=== PATIENT | female | born 1945 | race Caucasian/White ===

== ENCOUNTER 2017-10-18 08:55 | Day surgery (SDC) | payer BC ==
[~2017-10-18] VITALS: Ht 170.2 cm; Wt 70.1 kg
[~2017-10-18 08:55] MED LIST: DIPH50 PO; DOCU100 PO; FAMO20 PO; FAMO40 PO; FLUC150A PO; LORA1SY; MACUHEALTH; MOVE FREE JOIN1 EACH PO; OXYACE5T PO; PRED20 PO; PROM25 PO; RXOXYACE PO; SOLI5; SUPREP BOWEL P354 ML; Vitamin D2000 UNIT PO
== END 2017-10-18 10:54 | disposition home or self-care (01) ==
LOC: ORSCSDS 08:55
PROVIDERS: Internal Medicine Gastroenterology
PROC: 0DBL8ZX Excision of Transverse Colon, Via Natural or Artificial Opening Endoscopic, Diagnostic (ICD-10-PCS; principal; 2017-10-18 10:15)
PROC: 0DBH8ZX Excision of Cecum, Via Natural or Artificial Opening Endoscopic, Diagnostic (ICD-10-PCS; principal; 2017-10-18 10:15)
DX: Z12.11 Encounter for screening for malignant neoplasm of colon (principal); D12.0 Benign neoplasm of cecum; D12.3 Benign neoplasm of transverse colon; K57.30 Diverticulosis of large intestine without perforation or abscess without bleeding; K64.8 Other hemorrhoids
CPT/HCPCS: 88305; J7120

== ENCOUNTER 2019-01-10 10:40 | Day surgery (SDC) | payer BC ==
[~2019-01-10] VITALS: Ht 170.2 cm; Wt 73.0 kg
[~2019-01-10 10:40] MED LIST changes: +CALCIUM CIT 311 EACH PO; +CLARITIN10 MG PO; +PEPCID40 MG PO; +Vesicare10 MG PO
[2019-01-10] MEDS ORDERED: Toviaz4 MG PO (10:49)
--- NOTE | 2019-01-10 12:17 | NUR ---
01/10/19 1217 Shyann Goff PT UPDATED ON DELAY. RESTING COMFORTABLY IN ROOM WITH SPOUSE AND CALL LIGHT WITHIN REACH. DENIES NEEDS AT THIS TIME.
== END 2019-01-10 12:49 | disposition home or self-care (01) ==
LOC: ORSCSDS 10:40
PROVIDERS: Anesthesiology
PROC: 3E0R33Z Introduction of Anti-inflammatory into Spinal Canal, Percutaneous Approach (ICD-10-PCS; principal; 2019-01-10 12:00)
DX: M51.16 Intervertebral disc disorders with radiculopathy, lumbar region (principal); K21.9 Gastro-esophageal reflux disease without esophagitis; M54.5 Low back pain; Z79.899 Other long term (current) drug therapy
CPT/HCPCS: J1040

== ENCOUNTER 2019-08-23 11:58 | Day surgery (SDC) | payer BC ==
[~2019-08-23] VITALS: Ht 170.2 cm; Wt 71.4 kg
[~2019-08-23 11:58] MED LIST changes: +Percocet 5-3251 EACH PO; +Toviaz4 MG PO
[2019-08-23] MEDS ORDERED: ONDANSETRON TAB 4MG PO (13:07)
--- NOTE | 2019-08-23 13:38 | NUR ---
History, Chart, Medications and Allergies reviewed before start of procedure. Lungs clear T/O to Auscultation. Patient confirms NPO status and agrees with scheduled surgery. Pre-Op teaching done. Pt verbalizes understanding. Patient reports completing Chlorhexadine shower X2 prior to admission to hospital.
--- NOTE | 2019-08-23 13:53 | NUR ---
ASSUMED CARE OF PT
--- NOTE | 2019-08-23 18:25 | NUR ---
SHIFT SUMMARY PT ARRIVED TO ROOM 217 FROM PACU S/P RIGHT SHOULDER HUMARUS FX SURGERY. PT C/O 10/10 PAIN TO SHOULDER. PRN MEDS GIVEN, SEE EMAR FOR DOCUMENTATION. PILLOW SUPPORT PROVIDED TO ARM, WHICH HELPED WITH PAIN RELIEF. AQUACELL DRESSING IS C/D/I, BRUISING NOTED TO RIGHT ARM. CSM INTACT.
--- NOTE | 2019-08-24 06:37 | NUR ---
SHIFT SUMMARY LYING IN SEMI FOWLERS WITH EYES OPEN WHILE LOOKING OUT THE WINDOW. AAO X3, HSIEH, FOLLOWS ALL COMMANDS. HAS BEEN COMPLIANT AND COOPERATIVE WITH CARE. WAS ABLE TO GET OOB TO BSC X2, ONCE FOR URINE AND ONCE FOR BM AND URINE, TOLERATED WELL. DENIES FURTHER NEEDS OR WANTS AT THIS TIME. SAFETY MEASURES IN PLACE. WILL CONTINUE TO MONITOR AND GIVE HAND OFF TO ONCOMING SHIFT USING SBAR DURING BEDSIDE REPORT.
--- NOTE | 2019-08-24 10:12 | NUR ---
Pt was fitted with the immoblizer and her IV dc'd. Discharge instructions were reviewed with the pt. She said her is going to pick her up and take her home.
== END 2019-08-24 09:30 | disposition home or self-care (01) ==
LOC: ORSCMMR 11:58 → ORD 13:30 → ORSCMMR 13:30 → SURS 17:42 → ORSCMMR 08-24 09:30
PROVIDERS: Orthopaedic Surgery
PROC: 0PSC04Z Reposition Right Humeral Head with Internal Fixation Device, Open Approach (ICD-10-PCS; principal; 2019-08-23 13:30)
DX: S42.251A Displaced fracture of greater tuberosity of right humerus, initial encounter for closed fracture (principal); S42.291A Other displaced fracture of upper end of right humerus, initial encounter for closed fracture; W18.30XA Fall on same level, unspecified, initial encounter; K21.9 Gastro-esophageal reflux disease without esophagitis; Z79.899 Other long term (current) drug therapy
CPT/HCPCS: 72170; 73030; C1713; J1170; J1885; J2704; J3010; J3370; J7120

== ENCOUNTER 2020-08-19 06:44 | Day surgery (SDC) | payer BC ==
[~2020-08-19] VITALS: Ht 167.6 cm; Wt 69.2 kg
[~2020-08-19 06:44] MED LIST changes: +NIAC500 PO; +ONDANSETRON TAB 4MG PO; +PYRI100 PO
--- NOTE | 2020-08-19 20:43 | NUR ---
SHIFT SUMMARY PT POST OP LEFT TKA WITH DR PINTO. ALERT AND ORIENTED THROUGHOUT SHIFT. PAINFUL IN EARLY AFTERNOON. GIVEN 1 MG DILAUDID WHICH MADE PATIENT DROWSY. EXPERIENCED SOME NAUSEA LATE AFTERNOON AND EVENING. WALKED IN ROOM WITH PHYSICAL THERAPY. TOLERATING A FEW BITES OF REGULAR DIET. AQUACEL TO LEFT KNEE WITH ELIJAH WRAP. VOIDING. REPORT GIVEN TO [place] PAT[place]OL OFFICER RN.
--- NOTE | 2020-08-20 03:49 | NUR ---
SHIFT SUMMARY A/OX4, AMBULATING IN ROOM WITH MINIMAL ASSISTANCE FWW AND GB. REPORTS PAIN 1-2 AT THIS TIME. TOLERATING DIET AND VOIDING T/O SHIFT. VSS, NO ACUTE CHANGES AT THIS TIME. BED IN LOWEST POSITION WITH CALL LIGHT IN REACH. WILL CONTINUE TO MONITOR AND REPORT TO ONCOMING RN.
[2020-08-20 04:39] LABS: BASOPHILS ABSOLUTE AUTO 0.01 K/mm3 (0.00-0.23); BASOPHILS PERCENT AUTO 0 % (0-2); EOSINOPHILS ABSOLUTE AUTO 0.02 K/mm3 (0.00-0.68); EOSINOPHILS PERCENT AUTO 0 % (0-6); Hematocrit 34.6 % (33.0-51.0); Hemoglobin 11.3 g/dL (11.5-16.0); IMMATURE GRAN ABSOLUTE AUTO 0.02 K/mm3 (0.00-0.10); IMMATURE GRAN PERCENT AUTO 0 % (0-1); LYMPHOCYTES ABSOLUTE AUTO 0.71 K/mm3 (0.84-5.20); LYMPHOCYTES PERCENT AUTO 10 % (21-46); MONOCYTES PERCENT AUTO 7 % (4-13); Mean Corpuscular HGB 30.8 pg (26.0-34.0); Mean Corpuscular HGB Conc 32.7 g/dL (31.5-36.5); Mean Corpuscular Volume 94 fL (80-100); Mean Platelet Volume 10.7 fL (9.1-12.4); NEUTROPHILS ABSOLUTE AUTO 5.71 K/mm3 (1.96-9.15); NEUTROPHILS PERCENT AUTO 82 % (41-73); Platelet Count 184 K/mm3 (150-400); RDW Coefficient Variation 14.2 % (11.7-14.2); RDW Standard Deviation 49.4 fL (35.1-46.3); Red Blood Cell Count 3.67 M/mm3 (3.80-5.20); White Blood Cell Count 6.97 K/mm3 (4.00-11.30)
[2020-08-20 05:03] LABS: Anion Gap 5 mmol/L (6-16); Blood Urea Nitrogen 17 mg/dL (8-24); Bun/Creatinine Ratio 21.2 (12.0-20.0); CO2, Blood 27 mmol/L (21-32); Calcium, Blood 8.6 mg/dL (8.5-10.1); Chloride, Blood 104 mmol/L (98-108); Glomerular Filtration Rate >60 (60-); Glucose, Blood 108 mg/dL (70-99); Potassium, Blood 3.8 mmol/L (3.5-5.5); Sodium, Blood 136 mmol/L (136-145)
--- NOTE | 2020-08-20 07:15 | NUR ---
RECVD REPORT FROM PREVIOUS SHIFT PATITO LEBRON. PT IN BATHROOM, VOIDED, WOULD LIKE TO GO FOR A WALK, A/O X 4, PLEASANT/COOPERATIVE, DENIES FEELING LIGHTHEADED/DIZZY. AMBULATED IN HALLWAY AND IS SITTING IN CHAIR WITH CALL LIGHT, CRYO, TEDS/PAS
[2020-08-20] MEDS ORDERED: Percocet 5-3251 EACH PO (09:08)
[2020-08-20] MEDS ORDERED: ASPI81CH PO (09:09)
--- NOTE | 2020-08-20 11:15 | NUR ---
PROVIDED PT WITH DISCHARGE TEACHING AND PRINTED MATERIALS. PT STATES UNDERSTANDING. REMOVED PERIPHERAL IV WNL. PT'S BELONGINGS TRANSPORTED WITH PT TO AWAITING VEHICLE VIA WHEELCHAIR. PT DRIVING SAID VEHICLE.
== END 2020-08-20 11:55 | disposition home or self-care (01) ==
LOC: ORSCMMR 06:44 → ORD 08:15 → SURS 11:40 → ORSCMMR 08-20 11:55 → SURS 08-20 11:55
PROVIDERS: Orthopaedic Surgery
PROC: 0SRD0JA Replacement of Left Knee Joint with Synthetic Substitute, Uncemented, Open Approach (ICD-10-PCS; principal; 2020-08-19 08:15)
PROC: 8E0YXBZ Computer Assisted Procedure of Lower Extremity (ICD-10-PCS; principal; 2020-08-19 08:15)
DX: M17.12 Unilateral primary osteoarthritis, left knee (principal); K21.9 Gastro-esophageal reflux disease without esophagitis; Z79.899 Other long term (current) drug therapy
CPT/HCPCS: 36415; 73560-LT; 80048; 85025; 97110; 97116; 97162; A9270; C1776; J0171; J0690; J0735; J1100; J1170; J1885; J2250; J2370; J2405; J2704; J2795; J3010; J7120

== ENCOUNTER 2021-09-22 07:39 | Day surgery (SDC) | payer BC ==
[~2021-09-22 07:39] MED LIST changes: +ASPI81CH PO; +CELE200 PO; +PANT40 PO
--- NOTE | 2021-09-22 09:34 | NUR ---
09/22/21 0934 SOLA NAVAS SLIGHT REDNESS NOTED OVER IV SITE. ALMOST APPEARS LIKE A SCRATCH OVER THE AREA. PT DENIES DISCOMFORT OR PAIN.
== END 2021-09-22 09:47 | disposition home or self-care (01) ==
LOC: ORSCSDS 07:39
PROVIDERS: Ophthalmology
PROC: 08RJ3JZ Replacement of Right Lens with Synthetic Substitute, Percutaneous Approach (ICD-10-PCS; principal; 2021-09-22 09:00)
DX: H25.11 Age-related nuclear cataract, right eye (principal); H52.201 Unspecified astigmatism, right eye; K21.9 Gastro-esophageal reflux disease without esophagitis; Z79.899 Other long term (current) drug therapy
CPT/HCPCS: J2250; J3010; J3301; J7040; V2632

== ENCOUNTER 2021-10-15 07:43 | Day surgery (SDC) | payer BC ==
[~2021-10-15] VITALS: Ht 167.6 cm; Wt 70.0 kg
--- NOTE | 2021-10-15 08:13 | NUR ---
10/15/21 0813 Franchesca Madison @ 0809, RISA @ 0802
== END 2021-10-15 09:49 | disposition home or self-care (01) ==
LOC: ORSCSDS 07:43
PROVIDERS: Ophthalmology
PROC: 08RK3JZ Replacement of Left Lens with Synthetic Substitute, Percutaneous Approach (ICD-10-PCS; principal; 2021-10-15 09:00)
DX: H25.12 Age-related nuclear cataract, left eye (principal); Z96.1 Presence of intraocular lens; H52.202 Unspecified astigmatism, left eye; K21.9 Gastro-esophageal reflux disease without esophagitis; Z79.899 Other long term (current) drug therapy
CPT/HCPCS: J2001; J2250; J3010; J3301; J7040; V2632

== ENCOUNTER 2021-11-17 10:23 | Day surgery (SDC) | payer BC ==
[~2021-11-17] VITALS: Ht 167.6 cm; Wt 67.8 kg
[~2021-11-17 10:23] MED LIST changes: +B-12500 MC2 PO
--- NOTE | 2021-11-17 10:52 | NUR ---
History, Chart, Medications and Allergies reviewed before start of procedure. Patient confirms NPO status and agrees with scheduled surgery. Ambulatory in Day Surgery. Patient states colon prep results clear. Pre-Op teaching done. Pt verbalizes understanding. Lungs clear T/O to Auscultation. Patient States Post-Procedure ride home has been arranged.
--- NOTE | 2021-11-17 11:18 | NUR ---
11/17/21 1118 Benji Muñoz HISTORY, CHART, MEDICATIONS AND ALLERGIES REVIEWED BEFORE START OF PROCEDURE. PATIENT CONFIRMS NPO STATUS AND AGREES WITH SCHEDULED PROCEDURE. 3-LEAD EKG REVIEWED WITH PHYSICIAN PRIOR TO START OF PROCEDURE. MONITOR INTACT WITH CONTINUOUS PULSE OXIMETRY,CAPNOGRAPHY, 3-LEAD EKG, INTERMITTENT BP. SUPPLEMENTAL O2 TO BE TITRATED THROUGHOUT PROCEDURE TO MAINTAIN O2 SATURATION ABOVE 90%. PATIENT DETERMINED TO BE ASA APPROPRIATE FOR PROPOFOL SEDATION PRIOR TO START OF PROCEDURE BY DR. LIPSCOMB.
--- NOTE | 2021-11-17 12:48 | NUR ---
Discharge instructions reviewed with patient. Patient verbalizes understanding. Copy given to patient to take home.
--- NOTE | 2021-11-17 12:56 | NUR ---
Discharged via wheelchair to private car for ride home.
== END 2021-11-17 12:58 | disposition home or self-care (01) ==
LOC: ORSCMMR 10:23 → ORD 11:30 → ORSCSDS 11:30 → ORSCMMR 12:58
PROVIDERS: Internal Medicine Gastroenterology
PROC: 0DJ08ZZ Inspection of Upper Intestinal Tract, Via Natural or Artificial Opening Endoscopic (ICD-10-PCS; principal; 2021-11-17 11:30)
PROC: 0DBH8ZX Excision of Cecum, Via Natural or Artificial Opening Endoscopic, Diagnostic (ICD-10-PCS; principal; 2021-11-17 11:30)
PROC: 0DBL8ZX Excision of Transverse Colon, Via Natural or Artificial Opening Endoscopic, Diagnostic (ICD-10-PCS; principal; 2021-11-17 11:30)
DX: K21.9 Gastro-esophageal reflux disease without esophagitis (principal); Z12.11 Encounter for screening for malignant neoplasm of colon; Z86.010 Personal history of colon polyps; D12.0 Benign neoplasm of cecum; D12.3 Benign neoplasm of transverse colon; K44.9 Diaphragmatic hernia without obstruction or gangrene; K57.30 Diverticulosis of large intestine without perforation or abscess without bleeding; K64.4 Residual hemorrhoidal skin tags; E03.9 Hypothyroidism, unspecified; Z79.899 Other long term (current) drug therapy
CPT/HCPCS: 88305; J2704; J7120

== ENCOUNTER → 2023-10-01 | Outpatient (CLI) | payer BC ==
[2023-10-01 12:23] LABS: BASOPHILS PERCENT AUTO 0 % (0-2); EOSINOPHILS ABSOLUTE AUTO 0.15 K/mm3 (0.00-0.68); EOSINOPHILS PERCENT AUTO 3 % (0-6); Hematocrit 41.6 % (33.0-51.0); Hemoglobin 13.6 g/dL (11.5-16.0); IMMATURE GRAN ABSOLUTE AUTO 0.01 K/mm3 (0.00-0.10); IMMATURE GRAN PERCENT AUTO 0 % (0-1); LYMPHOCYTES ABSOLUTE AUTO 1.15 K/mm3 (0.84-5.20); LYMPHOCYTES PERCENT AUTO 24 % (21-46); MONOCYTES ABSOLUTE AUTO 0.39 K/mm3 (0.16-1.47); MONOCYTES PERCENT AUTO 8 % (4-13); Mean Corpuscular HGB 31.3 pg (26.0-34.0); Mean Corpuscular HGB Conc 32.7 g/dL (31.5-36.5); Mean Corpuscular Volume 96 fL (80-100); Mean Platelet Volume 10.3 fL (9.1-12.4); NEUTROPHILS ABSOLUTE AUTO 3.09 K/mm3 (1.96-9.15); NEUTROPHILS PERCENT AUTO 65 % (41-73); Platelet Count 201 K/mm3 (150-400); RDW Coefficient Variation 14.4 % (11.7-14.2); RDW Standard Deviation 51.2 fL (35.1-46.3); Red Blood Cell Count 4.34 M/mm3 (3.80-5.20); White Blood Cell Count 4.79 K/mm3 (4.00-11.30)
[2023-10-01 12:28] LABS: Bun/Creatinine Ratio 35.2 (12.0-20.0); Calcium, Blood 9.3 mg/dL (8.5-10.1); Creatinine, Blood 0.91 mg/dL (0.40-1.00); Potassium, Blood 4.1 mmol/L (3.5-5.5)
== END | disposition home or self-care (01) ==
LOC: LAB SHORT 12:18
PROVIDERS: Physician Assistant Surgical
DX: R31.9 Hematuria, unspecified (principal); R42 Dizziness and giddiness
CPT/HCPCS: 80048; 85025; 87086

== ENCOUNTER 2024-10-02 07:09 | Day surgery (SDC) | payer BC ==
[2024-10-02] VITALS (10 sets, daily range): BP systolic 106–122; BP diastolic 53–66
[~2024-10-02] VITALS: Ht 167.6 cm; Wt 66.7 kg
[~2024-10-02 07:09] MED LIST changes: +CeFAZolin Sodium 2,000 MG in NS 100 ML IV SCH; +Chlorhexidine Mouth Care 15 ML UDC MT SCH; +FISH OIL 1,0001 EA10 PO; +Ropivacaine 0.5% HCl/Pf 123.125 MG,EPINEPHrine HCL 0.25 MG,Ketorolac Tromethamine 15 MG... INFIL SCH; +TOCO1000 PO; +Tranexamic Acid 100 ML IV SCH
[2024-10-02] MEDS ORDERED: Midazolam HCl 1MG / ML 2ML Vial ONE (07:44)
[2024-10-02] MEDS ORDERED: Ondansetron HCl 2 MG / ML 2ML Vial IV ONE (07:45)
--- NOTE | 2024-10-02 08:19 | NUR ---
Ambulatory in Day Surgery WITH STEADY GAIT. ABLE TO STAND ON SCALE AND USE RESTROOM INDEPENDENTLY. SPOUSE AT BEDSIDE DURING PRE OP ADMISSION. WARM BLANKET PROVIDED. ALL BELONGINGS PLACED UNDER GURN. PT GAVE PURSE TO SPOUSE. History, Chart, Medications and Allergies reviewed before start of procedure. Pre-Op teaching done. Pt verbalizes understanding. PT AND SPOUSE DENY ANY FURTHER QUESTIONS AT THIS TIME. Patient States Post-Procedure ride home has been arranged WITH SPOUSE. PT REPORTS GETTING NAUSEATED WITH CODEINE AND HYDROCODONE AND REQUESTED NAUSEA MEDICATION WITH PRE OP OXYCONTIN. ANESTHESIA PROVIDER NOTIFIED AND ORDERED IV ZOFRAN TO BE TAKEN NOW. PT REPORTS DIFFICULTY WITH SWALLOWING PILLS MAKING THE TYLENOL DIFFICULT TO SWALLOW. SHE WAS SAT ALL THE WAY UP AND GIVEN WATER BUT REFUSED TO TAKE THE SECOND 500MG TYLENOL DUE TO THE DIFFICULTY SWALLOWING. SHE WAS ABLE TO TAKE 500MG TYLENOL AND 10MG OXYCONTIN.
[2024-10-02] MEDS ORDERED: FentaNYL Citrate 50 MCG/ML 2 ML Injection ONE ×2 (09:36→10:49)
[2024-10-02] MEDS ORDERED: HYDROmorphone HCl/Pf 1MG SYR IV PRN ×3 (09:50→10:10)
[2024-10-02] MEDS ORDERED: Metoclopramide HCl 5MG / ML 2ML Vial IV PRN (09:55)
[2024-10-02] MEDS ORDERED: Magnesium Hydroxide Conc 10 ML UDC PO PRN (09:55)
[2024-10-02] MEDS ORDERED: Ondansetron HCl 2 MG / ML 2ML Vial IV PRN ×2 (09:55→10:10)
[2024-10-02] MEDS ORDERED: Labetalol HCL 5 MG/ML 4ML Injection (Single Dose) IV PRN (10:05)
[2024-10-02] MEDS ORDERED: FentaNYL Citrate 50 MCG/ML 2 ML Injection IV PRN ×2 (10:05→10:10)
--- NOTE | 2024-10-02 11:52 | NUR ---
ARRIVAL TO UNIT AFTER RECEIVING REPORT FROM PIGGYBACK CLERK, PATIENT TRANSFERRED TO UNIT VIA BED AT APPROX 1145. PATIENT ALERT AND ORIENTED X4. COMMUNICATING NEEDS EFFECTIVELY. S/P R TKA W/ SPINAL - ABLE TO MOVE BLE, DOES REPORT DECREASED SENSATION. CAP REFILL <3 SECONDS. PPP. REPORTING 7/10 PAIN - MEDICATED PER EMAR. VSS. DENIES N/V - SMALL SNACKS AND WATER WITHIN REACH. TEFLA AND TEGADERM DX W/ ELIJAH WRAP C/D/I. COOLING DEVICE IN PLACE. IVF INFUSING PER EMAR W/ SECOND DOSE OF TXA. SIGNIFICANT OTHER AT BEDSIDE. CALL LIGHT IN REACH.
[2024-10-02] MEDS ORDERED: Ketorolac Tromethamine 15mg Vial IV SCH (12:00)
[2024-10-02] MEDS ORDERED: ASPI81CH PO (12:47)
--- NOTE | 2024-10-02 13:59 | NUR ---
REPORT GIVEN TO DONALD CAPUTO TO ASSUME CARE AT THIS TIME
--- NOTE | 2024-10-02 14:34 | NUR ---
ASSUMPTION OF CARE 1400 PT ALERT/ORIENTED. SOMEWHAT LETHARGIC STILL. BP STABLE. FLUIDS INFUSING PER EMAR. PT STATES SENSATION IN R FOOT/LEGS. POLARPACK IN PLACE. PRINEO CDI. PT AWAITING PHYSICAL THERAPY. STATES PAIN "GETTING BETTER" AFTER PO MEDICATION.
[2024-10-02] MEDS ORDERED: CeFAZolin Sodium 2,000 MG in NS 100 ML IV SCH (17:00)
--- NOTE | 2024-10-02 18:29 | NUR ---
DC'D @174 POST ASSUMPTION. PT BECAME AXO4. SPOUSE IN ROOM. VOIDED WELL, WENT [place] BATHROOM WITH FWW W/O INCIDENT. POLARPACK IN PLACE TO R KNEE / ALONG WITH PAIN MEDS PER EMAR - PT STATES TOLERABLE PAIN LEVEL. PT WITHOUT NUMBNESS TO LOWER EXTREMITIES AT TIME OF DISCHARGE. AMBULATING WELL. PT SIGNED OFF ON HER TO DC. VSS. DC INSTRUCTIONS PROVIDED. PT WHEELED OUT WOTH BELONGINGS @1744.
[2024-10-03] MEDS ORDERED: Calcium Citrate 315 MG/Vitamin D 250 IU Tab PO SCH (09:00)
== END 2024-10-02 17:15 | disposition home or self-care (01) ==
LOC: ORSCMMR 07:09 → ORD 08:15 → ORSCMMR 08:15 → SURS 11:32 → ORSCMMR 17:15
PROVIDERS: Orthopaedic Surgery
PROC: 0SRC0J9 Replacement of Right Knee Joint with Synthetic Substitute, Cemented, Open Approach (ICD-10-PCS; principal; 2024-10-02 08:15)
DX: M17.11 Unilateral primary osteoarthritis, right knee (principal); K21.9 Gastro-esophageal reflux disease without esophagitis; G62.9 Polyneuropathy, unspecified; Z79.899 Other long term (current) drug therapy
CPT/HCPCS: 73560-RT; 97110; 97116; 97162; A9270; C1713; C1776; J0165; J0690; J0735; J1885; J2250; J2405; J2704; J2795; J3010; J7120